=== PATIENT | female | born 2000 | race African-American/Black ===

== ENCOUNTER 2019-12-14 18:14 | Emergency (ER) | payer OTHER, SELFPAY ==
[2019-12-14 18:18] VITALS: BP 130/67; PULSE 92; RESP 18; TEMP 37.2; O2SAT 100
--- NOTE | 2019-12-14 18:37 | ED.FEMALEGU ---
HPI - Female Genitourinary General Chief complaint: [employer] Stated complaint: yeast infection Time Seen by Provider: 12/14/19 18:38 Source: patient Mode of arrival: ambulatory Limitations: no limitations History of Present Illness HPI Narrative: Case Rhoades is a 19 yo female with recurrent vaginal discharge, no PMH who is here for discharge with an odor. states she has a small amount of discharge - , has 1 month old . No history of preeclampsia or elevated blood pressure or diabetes during Related Data Allergies Allergy/AdvReac Type Severity Reaction Status Date / Time No Known Allergies Allergy Verified 12/14/19 18:26 Review of Systems Review of Systems: Narrative: CONSTITUTIONAL: Denies fever, chills, sweats. EYES: Denies visual changes, redness, discharge. ENT: Denies rhinorrhea, congestion, sore throat, otalgia. CARDIOVASCULAR: Denies chest pain, palpitations, edema. RESPIRATORY: Denies dyspnea, wheezing, cough GASTROINTESTINAL: Denies abdominal pain, nausea, vomiting, diarrhea. GENITOURINARY: Denies dysuria, hematuria, has abnormal discharge SKIN: Denies rash or itching. NEUROLOGIC: Denies numbness, or focal weakness. PSYCHIATRIC: Denies anxiety or depression. PMFSH Past Medical History Medical History (Updated 12/14/19 @ 18:48 by Karen Nogueira CNP) No active medical problems Family History Family History (Updated 12/14/19 @ 18:39 by Karen Nogueira CNP) Other No active medical problems Social History Social History (Updated 12/14/19 @ 18:39 by Karen Nogueira CNP) Smoking status: Current some day smoker Alcohol intake: current Comments At time of signature, I agree with nursing past medical, surgical, social and family history. There is no relevant family history pertinent to the presenting complaint. Exam Narrative: Exam Narrative: GENERAL: This is a well-nourished, well-developed patient, in mild distress. HEAD: normocephalic, atraumatic. EYES: Sclera clear/white. Vision is grossly intact. EARS: External ears normal, Hearing grossly intact. NOSE: External nose normal without nasal discharge, nares without redness, no rhinorrhea. THROAT: Mucous membranes moist, NECK: Neck supple, CARDIOVASCULAR: Regular rate and rhythm without murmurs, gallops, or rubs. RESPIRATORY: Clear to auscultation. Breath sounds equal bilaterally. No wheezes, rales, or rhonchi. GASTROINTESTINAL: Abdomen soft, : On pelvic exam patient has small amount of white clear vaginal discharge in vaginal vault no lesions no lacerations to the vault no CMT SKIN: warm, intact with no suspicious lesions or rash, good texture and turgor. NEURO: awake, alert, and oriented to person, place and time. There were no obvious focal neurologic abnormalities. Steady gait EXTREMITIES: Normal range of motion. BACK: Nontender without deformity Course Course Emergency Course: Vaginal exam revealed small amount of discharge we will treat with metronidazole patient should follow-up with her [employer] Vital Signs Vital signs: Vital Signs Temperature 99 F 12/14/19 18:18 Pulse Rate 92 12/14/19 18:18 Respiratory Rate 18 12/14/19 18:18 Blood Pressure 130/67 12/14/19 18:18 Pulse Oximetry 100 12/14/19 18:18 Temperature 99 F 12/14/19 18:18 Pulse Rate 92 12/14/19 18:18 Respiratory Rate 18 12/14/19 18:18 Blood Pressure 130/67 12/14/19 18:18 Pulse Oximetry 100 12/14/19 18:18 MDM - Female Genitourinary Differential Diagnosis Differential diagnosis: Likely urinary tract infection, bacterial vaginosis, cystitis, dysmenorrhea and other Critical Care Time Critical Care Time Critical Care Time: No Discharge Plan Discharge Clinical Impression: Bacterial vaginosis Patient Disposition: Home, Self-Care Condition: Stable Instructions: Antibiotic Form, Bacterial Vaginosis (ED) Additional Instructions: Useful amount of fungal cream that was dispensed Prescriptions: N
== END 2019-12-14 18:51 | disposition home or self-care (01) ==
PROVIDERS: Emergency Provider Nurse Practitioner
DX: O86.13 Vaginitis following delivery (principal); F17.200 Nicotine dependence, unspecified, uncomplicated
CPT/HCPCS: 99213; G0463